=== PATIENT | female | born 1960 | race Caucasian/White ===

== ENCOUNTER 2017-01-27 04:27 | Emergency (ER) | payer OTHER ==
[~2017-01-27] VITALS: Ht 157.5 cm; Wt 85.5 kg
[~2017-01-27 04:27] MED LIST: HYDR-3498 PO; MTF1000T PO; OMEP20CA16 PO; ONDA4TAB35 PO; ONDA4TAB95 PO; TAMS-14 PO
[2017-01-27 04:35] VITALS: Ht 157.5 cm; Wt 85.5 kg
[2017-01-27] MEDS ORDERED: SOD CHLORIDE 0.9% 1,000 ML IV STA (05:54)
[2017-01-27 06:28] LABS: ADD SCAN DIFF NO; BASOPHILS % 0.1 % (0.0-2.0); EOSINOPHILS # 0.1 10^3/ul (0.0-0.5); EOSINOPHILS % 0.7 % (0.0-7.0); HEMATOCRIT 41.3 % (37.0-47.0); HEMOGLOBIN 14.2 g/dl (12.0-16.0); LYMPHOCYTES # 0.8 10^3/ul (0.8-2.9); LYMPHOCYTES % 11.6 % (15.0-51.0); MEAN CORPUSCULAR HEMOGLOBIN 31.8 pg (29.0-33.0); MEAN CORPUSCULAR HGB CONC 34.4 g/dl (32.0-37.0); MEAN CORPUSCULAR VOLUME 92.4 fl (82.0-101.0); MONOCYTE # 0.4 10^3/ul (0.3-0.9); MONOCYTES % 5.5 % (0.0-11.0); NEUTROPHIL # 5.5 10^3/ul (1.6-7.5); NEUTROPHILS % 81.8 % (39.0-77.0); PLATELET COUNT 214 10^3/UL (140-415); RED BLOOD COUNT 4.47 10^6/ul (4.20-5.40); RED CELL DISTRIBUTION WIDTH 12.9 % (11.5-14.5); WHITE BLOOD COUNT 6.7 10^3/ul (4.8-10.8)
[2017-01-27] MEDS ORDERED: HYDROmorphONE 1 MG/ML SYG IV STA (06:39)
[2017-01-27] MEDS ORDERED: ONDANSETRON 4 MG INJ IV STA (06:39)
[2017-01-27 07:17] LABS: ADD UMIC YES; UR ASCORBIC ACID 20 mg/dL (NEGATIVE); UR BACTERIA FEW /HPF (NONE SEEN); UR BILIRUBIN (Dip) NEGATIVE (NEGATIVE); UR BLOOD (Dip) NEGATIVE (NEGATIVE); UR CLARITY SLIGHTLY CLOUDY (CLEAR); UR COLOR YELLOW (YELLOW); UR GLUCOSE (Dip) 1+ mg/dL (NEGATIVE); UR KETONES (Dip) NEGATIVE (NEGATIVE); UR LEUKOCYTE ESTERASE (Dip) NEGATIVE Leu/ul (NEGATIVE); UR NITRITE (Dip) NEGATIVE (NEGATIVE); UR RBC 1 /HPF (0-5); UR SPECIFIC GRAVITY (Dip) 1.013 (1.003-1.030); UR TOTAL PROTEIN (Dip) 3+ mg/dl (NEGATIVE); UR UROBILINOGEN (Dip) NEGATIVE (NEGATIVE)
--- NOTE | 2017-01-27 07:17 | RADRPT ---
PROCEDURE: CT Abdomen and Pelvis without contrast. CLINICAL INDICATION: Abdominal pain. TECHNIQUE: Routine abdominopelvic CT was performed without intravenous contrast and reformatted in the axial, coronal, sagittal planes. Radiation dose: CTDIvol (mGy) = 22.1; total DLP mGy-cm = 1320. One or more of the following radiation dose techniques were used: -Automated exposure control. -Adjust of the mA and/or kV according to patient size. -Use of iterative reconstruction technique. COMPARISON: 04/19/2015. FINDINGS: There are diffuse steatotic changes evident within the liver. Gallbladder, biliary system, pancreas , adrenal glands, and spleen are grossly unremarkable by unenhanced CT. There are multiple small punctate densities identified in the bilateral kidneys, consistent with nep hrolithiasis. There is no hydronephrosis or obstructive uropathy. No bladder stones are demonstrat ed. There are postoperative changes reflecting prior right sided retroperitoneal and pelvic lymph n ode dissection. There is a small to moderate hiatal hernia. There is sigmoid and descending colonic diverticulosis without diverticulitis. Small bowel loops are normal in caliber and mural thickness. The uterus is surgically absent. There is a nonspecific 2.8 cm cystic structure identified at the l evel of the vaginal stump. There is also a 3.1 cm cystic structure noted in the right adnexa. No suspicious bone lesions. IMPRESSION: Examination is limited without intravenous contrast, which may limit diagnostic sensitivity. Bilateral nonobstructive nephrolithiasis. Hepatic steatosis. Decreased size of nonspecific fluid collections in the pelvis noted at the level of the vaginal stum p and right adnexa. Colonic diverticulosis, uncomplicated. Hiatal hernia. RPTAT: EE .Rashi Coats MD, Date Time Electronically viewed and signed by .Rashi Coats MD, MD on 01/27/2017 07:22 .C/
--- NOTE | 2017-01-27 07:22 | ERD ---
ER Documentation Chief Complaint Date/Time DATE: 01/27/17 TIME: 07:17 Chief Complaint LLQ pain with diarrhea started 10pm last night HPI This 56-year-old female who states 1 hour prior to arrival she started having some left lower quadrant cramps with 2 episodes of nonbloody diarrhea. No nausea vomiting. Describes the pain is sharp and crampy with some radiation to the left back. No hematuria no dysuria. She states she had a similar episode one year ago. No chest pain shortness of breath no fevers ROS All systems reviewed and are negative except as per history of present illness. Medications Home Meds Active Scripts Tamsulosin Hcl* (Flomax*) 0.4 Mg Cap.er.24h, 0.4 MG PO DAILY, #10 CAP Prov:KYA OBREGON MD 04/19/15 Ondansetron Hcl* (Zofran* ODT) 4 mg -ODT Tab.disper, 4 MG PO Q6 Y for NAUSEA AND /OR VOMITING, #30 TAB Prov:KYA OBREGON MD 04/19/15 Hydrocodone Bit-Acetaminophen* ([place]*) 5-325 Mg Tab, 1 TAB PO Q6 Y for PAIN, # 20 TAB Prov:KYA OBREGON MD 04/19/15 Reported Medications Omeprazole* (Omeprazole*) 20 Mg Capsule.dr, 20 MG PO AC BREAKFAST, CAP 04/19/15 Metformin* (Glucophage*) 1,000 Mg Tablet, 1000 MG PO BID, TAB 04/19/15 Ondansetron Hcl* (Ondansetron Hcl*) 4 Mg Tablet, 4 MG PO Q6H Y for NAUSEA AND/ OR VOMITING, TAB 04/19/15 Hydrocodone Bit-Acetaminophen* ([place]*) 5-325 Mg Tab, 1 TAB PO Q6 Y for SEVERE PAIN LEVEL 7-10, TAB 04/19/15 Allergies Allergies: Coded Allergies: No Known Allergies (Verified Allergy, Mild, 07/30/13) PMhx/Soc History of Surgery: Yes (Hysterectomy/Ovarian removal, renal litho) Anesthesia Reaction: No Hx Neurological Disorder: No Hx Respiratory Disorders: No Hx Cardiac Disorders: Yes (HTN) Hx Psychiatric Problems: No Hx Miscellaneous Medical Probl: Yes (Kidney stones, Ovarian CA, DMII) Hx Alcohol Use: No Hx Substance Use: No Hx Tobacco Use: No Smoking Status: Never smoker FmHx Family History: No coronary disease Physical Exam Vitals Vital Signs Date Time Temp Pulse Resp B/P Pulse Ox O2 Delivery O2 Flow Rate FiO2 01/27/17 06:34 98.7 90 18 151/65 98 Room Air 01/27/17 04:35 98.4 88 18 135/87 98 Physical Exam Const: Well-developed, well-nourished Head: Atraumatic, normocephalic Eyes: Normal Conjunctiva, PERRLA, EOMI, normal sclera, no nystagmus ENT: Normal External Ears, Nose and Mouth, moist mucus membranes. Neck: Full range of motion. No meningismus, no lymphadenopathy. Resp: Clear to auscultation bilaterally, no wheezing, rhonchi, rales Cardio: Regular rate and rhythm, no murmurs, S1 S2 present Abd: Soft, mild to moderate left lower quadrant tenderness, non distended. Normal bowel sounds, no guarding or rebound, no pulsitile abdominal masses or bruits Skin: No petechiae or rashes, no ecchymosis , no maculopapular rash Back: No midline or flank tenderness Ext: No cyanosis, or edema, FROM x 4, normal inspection, neurovascularly intact x 4 Neur: Awake and alert, STR 5/5 x 4, sensation intact x 4, no focal findings, cerebellum intact Psych: Normal Mood and Affect Result Diagram: 01/27/17 0554 Results 24 hrs Laboratory Tests Test 01/27/17 05:54 01/27/17 06:56 White Blood Count 6.710^3/ul Red Blood Count 4.4710^6/ul Hemoglobin 14.2g/dl Hematocrit 41.3% Mean Corpuscular Volume 92.4fl Mean Corpuscular Hemoglobin 31.8pg Mean Corpuscular Hemoglobin Concent 34.4g/dl Red Cell Distribution Width 12.9% Platelet Count 36114^3/UL Mean Platelet Volume 9.0fl Neutrophils % 81.8% Lymphocytes % 11.6% Monocytes % 5.5% Eosinophils % 0.7% Basophils % 0.1% Nucleated Red Blood Cells % 0.0/100WBC Neutrophils # 5.510^3/ul Lymphocytes # 0.810^3/ul Monocytes # 0.410^3/ul Eosinophils # 0.110^3/ul Basophils # 0.010^3/ul Nucleated Red Blood Cells # 0.010^3/ul Urine Color YELLOW Urine Clarity SLIGHTLY CLOUDY Urine pH 7.0 Urine Specific [place] 1.013 Urine Ketones NEGATIVEmg/dL Urine Nitrite NEGATIVEmg/dL Urine Bilirubin NEGATIVEmg/dL Urine Urobilinogen NEGATIVEmg/dL Urine Leukocyte Esterase NEGATIVELeu/ul Urine Microscopic RBC 1/HPF Urine Microscopic WBC 0/HPF Urine Bacteria FEW/HPF Urine Hemoglobin NEGATIVEmg/dL Urine Glucose 1+mg/dL Urine Total Protein 3+mg/dl Current Medications Medications (Trade) Dose Ordered Sig/Sol Route PRN Reason Start Time Stop Time Status Last Admin Dose Admin Sodium Chloride (NS) 1,000 ml @ 1,000 mls/hr Q1H STAT IV 01/27/17 05:54 01/27/17 06:53 DC 01/27/17 06:58 Hydromorphone HCl (Dilaudid) 1 mg ONCE STAT IV 01/27/17 06:39 01/27/17 06:40 DC 01/27/17 06:54 Ondansetron HCl (Zofran Inj) 4 mg ONCE STAT IV 01/27/17 06:39 01/27/17 06:40 DC 01/27/17 06:54 Procedures/MDM PROCEDURE: CT Abdomen and Pelvis without contrast. CLINICAL INDICATION: Abdominal pain. TECHNIQUE: Routine abdominopelvic CT was performed without intravenous contrast and reformatted in the axial, coronal, sagittal planes. Radiation dose: CTDIvol (mGy) = 22.1; total DLP mGy-cm = 1320. One or more of the following radiation dose techniques were used: -Automated exposure control. -Adjust of the mA and/or kV according to patient size. -Use of iterative reconstruction technique. COMPARISON: 04/19/2015. FINDINGS: There are diffuse steatotic changes evident within the liver. Gallbladder, biliary system, pancreas, adrenal glands, and spleen are grossly unremarkable by unenhanced CT. There are multiple small punctate densities identified in the bilateral kidneys , consistent with nephrolithiasis. There is no hydronephrosis or obstructive uropathy. No bladder stones are demonstrated. There are postoperative changes reflecting prior right sided retroperitoneal and pelvic lymph node dissection. There is a small to moderate hiatal hernia. There is sigmoid and descending colonic diverticulosis without diverticulitis. Small bowel loops are normal in caliber and mural thickness. The uterus is surgically absent. There is a nonspecific 2.8 cm cystic structure identified at the level of the vaginal stump. There is also a 3.1 cm cystic structure noted in the right adnexa. No suspicious bone lesions. IMPRESSION: Examination is limited without intravenous contrast, which may limit diagnostic sensitivity. Bilateral nonobstructive nephrolithiasis. Hepatic steatosis. Decreased size of nonspecific fluid collections in the pelvis noted at the level of the vaginal stump and right adnexa. Colonic diverticulosis, uncomplicated. Hiatal hernia. RPTAT: EE .Rashi Coats MD, MD Date Time Electronically viewed and signed by .Rashi Coats MD, MD on 01/27/2017 07:22 .C/ CC: JESSY HERNANDEZ Cyril. No evidence of diverticulitis however she does have some colonic diverticulosis. She may have some microscopic diverticulitis. Other possibilities are bad food exposure or viral illness. We will treat accordingly with some Cipro and Flagyl and pain control. Blood work is unremarkable. Departure Diagnosis: Primary Impression: Abdominal pain Abdominal location: left lower quadrant Qualified Code: R10.32 - Left lower quadrant pain Additional Impression: Diarrhea Diarrhea type: unspecified type Qualified Code: R19.7 - Diarrhea, unspecified type Condition: VENUS Denney DO Jan 27, 2017 07:22
[2017-01-27] MEDS ORDERED: METR500T PO (07:24)
[2017-01-27] MEDS ORDERED: HYDR-902 PO (07:24)
[2017-01-27] MEDS ORDERED: CIPR500T4 PO (07:24)
[2017-01-27 07:51] LABS: ALBUMIN 4.4 g/dl (3.3-4.9); ALBUMIN/GLOBULIN RATIO 1.46; BILIRUBIN,INDIRECT 0.3 mg/dl (0-1.1); BILIRUBIN,TOTAL 0.3 mg/dl (0.2-1.3); CALCIUM 8.8 mg/dl (8.4-10.2); CREATININE 0.54 mg/dl (0.44-1.00); POTASSIUM 3.5 mmol/L (3.5-5.1); TOTAL PROTEIN 7.4 g/dl (6.1-8.1)
[2017-01-27 09:00] VITALS: BP 146/90; PULSE 88; RESP 18; TEMP 97.9
== END 2017-01-27 09:28 | disposition home or self-care (01) ==
LOC: E/R 04:27
DX: R10.32 Left lower quadrant pain (principal); R19.7 Diarrhea, unspecified; I10 Essential (primary) hypertension; E11.9 Type 2 diabetes mellitus without complications; Z79.84 Long term (current) use of oral hypoglycemic drugs; Z85.43 Personal history of malignant neoplasm of ovary
CPT/HCPCS: 74176; 80053; 81001; 83690; 85025; J1170; J2405; J7030; 36415; 96361; 96374; 96375